=== PATIENT | female | born 1980 | race Hispanic/Latino ===

== ENCOUNTER 2023-01-06 21:09 | Emergency (ER) | payer OTHER, SELFPAY ==
--- OUTSIDE RECORDS SUMMARY | 2023-01-06 21:22 | XMS REPORT | Continuity of Care Document ---
:1980 Author Organization [facility] t Address [address] [facility] [address] [place] [id number] Care Team Providers Name Role Phone Unavailable Unavailable Unavailable Problems This patient has no known problems. Allergies, Adverse Reactions, Alerts This patient has no known allergies or adverse reactions. Medications This patient has no known medications. Procedures This patient has no known procedures. Results Test Description Test Time Test Comments Results Result [facility] e Comments SCR MAMM 2022-02-11 BILATERAL NIURKA 16:38:02 CAD DIGITAL Name: Tino : 1980 Sex: F - SCR MAMM BILATERAL NIURKA CAD DIGITALBILATERAL DIGITAL SCREENING MAMMOGRAM 3D/2D WITH CAD: 2CLINICAL: Asymptomatic. Digital breast tomosynthesis was performed in addition to routine CC and MLO views. Current mammographic images were evaluated by [employer]Stream[employer] CAD (computer-aided detection) software. Comparison is made to exams dated 08/18/2020 mammogram, 02/26/2019 mammogram, and 11/21/2017 mammogram - [facility]. The tissue of both breasts is extremely dense, which lowers the sensitivity of mammography. No suspicious mass, architectural distortion, malignant type calcification, or lymph node abnormality detected. Breast architecture is stable compared to prior exams.IMPRESSION: NEGATIVEThere is no mammographic evidence of malignancy. Resume annual screening mammography in one year. (02/12/2023) Zulay marks/penrad:02/11/2022 16:38:02 Entry: ba - 02/11/2022 19:20:51Imaging Technologist: Annie Lund FW, RT(M), [facility]-FWletter sent: BIRADS 1-2 Normal Mammogram BI-RADS: 1 Negative SCR MAMM 2020-08-30 BILATERAL NIURKA 14:21:56 CAD DIGITAL Name: Tino : 1980 Sex: F - SCR MAMM BILATERAL NIURKA CAD DIGITALBILATERAL DIGITAL SCREENING MAMMOGRAM 3D/2D WITH CAD: 08/18/2020LINICAL: Asymptomatic. Digital breast tomosynthesis was performed in addition to routine CC and MLO views. Current mammographic images were evaluated by [employer] CAD (computer-aided detection) software. Comparison is made to exams dated 02/26/2019 mammogram, 11/21/2017 mammogram, and 10/04/2016 mammogram - [facility]. The tissue of both breasts is extremely dense, which lowers the sensitivity of mammography. Bilateral scattered focal asymmetries.No suspicious mass, architectural distortion, malignant type calcification, or lymph node abnormality detected. IMPRESSION: INCOMPLETE: ADDITIONAL IMAGING EVALUATION NEEDEDBilateral scattered focal asymmetries. Initial evaluation with ultrasound and possible spot compression Tomosynthesis views is recommended at this time.Artie Wynne M.D. ss/:08/30/2020 14:21:56 Registered Public Health Nurse: Miya Rogers MM, [facility] sent: Additional Imaging Mammogram BI-RADS: 0 Incomplete: Additional Imaging Evaluation Needed SCR MAMM 2019-03-01 - SCR MAMM BILATERAL BILATERAL CAD 11:14:07 CAD DIGITALBILATERAL DIGITAL DIGITAL SCREENING MAMMOGRAM WITH CAD: 02/26/2019CLINICAL: Asymptomatic. Current mammographic images were evaluated by either a [employer] M-Vu or a [employer] ImageChecker CAD (computer aided detection system). Comparison is made to exams dated 11/21/2017 mammogram and 10/04/2016 mammogram - [facility]. The tissue of both breasts is extremely dense, which lowers the sensitivity of mammography. There is a benign calcification in the right breast. No suspicious mass, architectural distortion, malignant type calcification, or lymph node abnormality detected. Breast architecture is stable compared to prior exams.IMPRESSION: BENIGNThere is no mammographic evidence of malignancy. Resume annual screening mammography in one year. Andrés Julian/penrad:03/01/2019 11:14:07 Registered Public Health Nurse: Sharon Christianson MM, [facility]ography[facility] sent: BIRADS 1-2 Normal Mammogram BI-RADS: 2 Benign
[2023-01-06] MEDS ORDERED: ACETAMINOPHEN 500 MG TAB ONE (22:02)
[2023-01-06] MEDS ORDERED: NA CHLORIDE 0.9% 1,000 ML ONE (22:02)
--- NOTE | 2023-01-06 22:12 | RAD REPORT ---
EXAM DESCRIPTION: RAD - Chest Single View - 01/06/2023 10:02 pm CLINICAL HISTORY: COUGH Chest pain. COMPARISON: <Comparisons> FINDINGS: Portable technique limits examination quality. The lungs are grossly clear. The heart is normal in size. No displaced fractures. IMPRESSION: No acute intrathoracic process suspected.
--- NOTE | 2023-01-06 22:13 | RAD REPORT ---
EXAM DESCRIPTION: CT - CTHCSPWOC - 01/06/2023 10:07 pm CLINICAL HISTORY: Trauma, head and neck injury. CONFUSED COMPARISON: No comparisons TECHNIQUE: Axial 5 mm thick images of the head were obtained. Axial 2 mm thick images of the cervical spine were obtained with sagittal and coronal reconstruction images generated and reviewed. All CT scans are performed using dose optimization technique as appropriate and may include automated exposure control or mA/KV adjustment according to patient size. FINDINGS: CT HEAD WITHOUT CONTRAST: No acute hemorrhage, hydrocephalus or extra-axial collection is identified.No areas of brain edema or midline shift. The paranasal sinuses and mastoids are clear.The calvarium is intact. CT CERVICAL SPINE WITHOUT CONTRAST: No fracture or subluxation.No prevertebral soft tissues swelling is identified. IMPRESSION: No acute intracranial or cervical spine findings.
[2023-01-06 22:18] LABS: Absolute Lymphocytes (CBC) 1.7 K/uL (0.7-4.9); Hematocrit 35.9 % (36.0-45.0); Lymphocytes % 20.7 % (15.3-44.8); MCV 81.5 fL (80-100); MPV 7.3 fL (7.6-11.3); Platelets 300 thou/uL (152-406)
[2023-01-06 22:27] LABS: Albumin 3.5 g/dL (3.4-5.0); Bilirubin Direct 0.1 mg/dL (0-0.2); Bilirubin Indirect, Calculated 0.3 mg/dL (0.2-0.8); Bilirubin Total 0.4 mg/dL (0.2-1.0); Magnesium 2.4 mg/dL (1.6-2.4); Potassium 3.5 mEq/L (3.5-5.1); Protein, Total 7.8 g/dL (6.4-8.2); Protime INR 1.08; Troponin High Sensitivity 5.2 pg/mL (<58.9)
--- NOTE | 2023-01-06 23:11 | EDPHYS ---
Physician Documentation [facility] Name: Nohelia Rivera Age: 42 yrs Sex: Female : 1980 Arrival Date: 01/06/2023 Time: 21:09 Bed 7 Private MD: ANDRADE Physician Celso Powers HPI: 01/06 23:05 This 42 yrs old Female presents to ER via EMS with complaints of insomnia, grayson possible seizure. 23:05 The patient presents to the emergency department with anxiety. Onset: The grayson symptoms/episode began/occurred 3 day(s) ago. Past psychiatric history: Prior diagnosis: anxiety , insomnia. passed out , possible seizure. The patient presents with trouble concentrating. Onset: The symptoms/episode began/occurred today, yesterday. Possible causes: unknown. Associated signs and symptoms: The patient has no apparent associated signs or symptoms. Current symptoms: In the emergency department the patient's symptoms have improved, markedly, is more alert. Historical: - Allergies: 21:26 No Known Allergies; jj7 - PMHx: 21:26 None; jj7 - PSHx: 21:26 None; jj7 - Immunization history:: Adult Immunizations up to date, Client reports receiving the 2nd dose of the Covid vaccine. - Social history:: Smoking status: Patient denies any tobacco usage or history of. Patient/guardian denies using alcohol, street drugs. - Family history:: not pertinent. ROS: 23:05 Constitutional: Negative for fever, chills, and weight loss, Eyes: Negative for injury, grayson pain, redness, and discharge, ENT: Negative for injury, pain, and discharge, Neck: Negative for injury, pain, and swelling, Cardiovascular: Negative for chest pain, palpitations, and edema, Respiratory: Negative for shortness of breath, cough, wheezing, and pleuritic chest pain, Abdomen/GI: Negative for abdominal pain, nausea, vomiting, diarrhea, and constipation, Back: Negative for injury and pain, : Negative for injury, bleeding, discharge, and swelling, MS/Extremity: Negative for injury and deformity, Skin: Negative for injury, rash, and discoloration, Neuro: Negative for headache, weakness, numbness, tingling, and seizure, Allergy/Immunology: Negative for hives, rash, and allergies, Endocrine: Negative for neck swelling, polydipsia, polyuria, polyphagia, and marked weight changes, Hematologic/Lymphatic: Negative for swollen nodes, abnormal bleeding, and unusual bruising, 23:05 Psych: Positive for anxiety, insomnia, Exam: 23:05 Constitutional: This is a well developed, well nourished patient who is awake, alert, grayson and in no acute distress. Head/Face: Normocephalic, atraumatic. Eyes: Pupils equal round and reactive to light, extra-ocular motions intact. Lids and lashes normal. Conjunctiva and sclera are non-icteric and not injected. Cornea within normal limits. Periorbital areas with no swelling, redness, or edema. ENT: Nares patent. No nasal discharge, no septal abnormalities noted. Tympanic membranes are normal and external auditory canals are clear. Oropharynx with no redness, swelling, or masses, exudates, or evidence of obstruction, uvula midline. Mucous membranes moist. Neck: Trachea midline, no thyromegaly or masses palpated, and no cervical lymphadenopathy. Supple, full range of motion without nuchal rigidity, or vertebral point tenderness. No Meningismus. Chest/axilla: Normal chest wall appearance and motion. Nontender with no deformity. No lesions are appreciated. Cardiovascular: Regular rate and rhythm with a normal S1 and S2. No gallops, murmurs, or rubs. Normal PMI, no JVD. No pulse deficits. Respiratory: Lungs have equal breath sounds bilaterally, clear to auscultation and percussion. No rales, rhonchi or wheezes noted. No increased work of breathing, no retractions or nasal flaring. Abdomen/GI: Soft, non-tender, with normal bowel sounds. No distension or tympany. No guarding or rebound. No evidence of tenderness throughout. Back: No spinal tenderness. No costovertebral tenderness. Full range of motion. Female : Normal external genitalia. Skin: Warm, dry with normal turgor. Normal color with no rashes, no lesions, and no evidence of cellulitis. MS/ Extremity: Pulses equal, no cyanosis. Neurovascular intact. Full, normal range of motion. Neuro: Awake and alert, GCS 15, oriented to person, place, time, and situation. Cranial nerves II-XII grossly intact. Motor strength 5/5 in all extremities. Sensory grossly intact. Cerebellar exam normal. Normal gait. Psych: Awake, alert, with orientation to person, place and time. Behavior, mood, and affect are within normal limits. 23:05 ECG was reviewed by the Attending Physician. Vital Signs: 21:09 BP 157 / 99; Pulse 102; Resp 19; Temp 98.3; Pulse Ox 100% ; Weight 72.57 kg; Height 5 jj7 ft. 3 in. ; Pain 0/10; 22:47 BP 150 / 93; Pulse 71; Resp 16; Pulse Ox 100% on R/A; jb4 21:09 Body Mass Index 28.34 (72.57 kg, 160.02 cm) [facility] 21:09 Pain Scale: Adult j7 MDM: 21:11 Patient medically screened. grayson 23:07 Differential diagnosis: drug withdrawal. acute psychotic break, depression, psychosis grayson secondary to non-compliance. Differential Diagnosis altered mental status, sepsis, flu. Differential Diagnosis: CVA, electrolyte abnormality, alcohol intoxication, hypoglycemia, intracranial bleed, meningitis, pneumonia, seizure, sepsis, TIA, UTI, volume depletion. Data reviewed: vital signs, nurses notes, lab test result(s), EKG, radiologic studies, CT scan, plain films. Consideration of Admission/Observation Patient was admitted/placed on observation. Escalation of care including admission/observation considered. I considered the following discharge prescriptions or medication management in the emergency department Medications were administered in the Emergency Department. See MAR. Independent interpretation of the following test(s) in the Emergency Department EKG: See my EKG interpretation above. Test considered but Not performed: MRI: no mri brain. Historians other than the Patient: Family Member: multiple. Care significantly affected by the following chronic conditions: no psych hx. 01/06 21:13 Order name: Basic Metabolic Panel; Complete Time: 23:02 [facility] 01/06 21:13 Order name: CBC with Diff; Complete Time: 23:02 [facility] 01/06 21:13 Order name: LFT's; Complete Time: 23:02 [facility] 01/06 21:13 Order name: Magnesium; Complete Time: 23:02 [facility] 01/06 21:13 Order name: NT PRO-BNP; Complete Time: 23:02 [facility] 01/06 21:13 Order name: PT-INR; Complete Time: 23:02 [facility] 01/06 21:13 Order name: Troponin HS; Complete Time: 23:02 [facility] 01/06 21:13 Order name: Asprin; Complete Time: 23: [facility] 01/06 21:13 Order name: XRAY Chest (1 view); Complete Time: 23: [facility] 01/06 21:13 Order name: CT Head C Spine; Complete Time: 23: [facility] 01/06 21:13 Order name: EKG; Complete Time: 21:14 [facility] 01/06 21:13 Order name: Cardiac monitoring; Complete Time: 22: [facility] 01/06 21:13 Order name: EKG - Nurse/Tech; Complete Time: 21:50 [facility] 01/06 21: Order name: IV Saline Lock; Complete Time: 22: [facility] 01/06 21:13 Order name: Labs collected and sent; Complete Time: : [facility] 01/06 21: Order name: O2 Per Protocol; Complete Time: 22: [facility] 01/06 21:13 Order name: O2 Sat Monitoring; Complete Time: 22: [facility] 01/06 21:13 Order name: Seizure Precautions; Complete Time: 22: [facility] EC:05 Rate is 87 beats/min. Rhythm is regular. QRS [place] is Normal. PA interval is normal. QRS grayson interval is normal. QT interval is normal. No Q waves. T waves are Normal. No ST changes noted. Clinical impression: NSR w/ Non-specific ST/T Changes and No evidence of ischemia. Interpreted by me. Reviewed by me. 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 - Insomnia grayson Followup: grayson - With: Private Physician - When: 2 - 3 days - Reason: Recheck today's complaints, Continuance of care, Re-evaluation by your physician Discharge Instructions: - Discharge Summary Sheet grayson - Insomnia grayson - Seizure, Adult, Ennt-me-Vwmh grayson Forms: - Medication Reconciliation Form grayson - Thank You Letter grayson - Antibiotic Education grayson - Prescription Opioid Use grayson - Patient Portal Instructions grayson - Leadership Thank You Letter grayson Prescriptions: - Hydroxyzine HCl 25 mg Oral tablet - take 1 tablet ORAL route every 6 hours As needed; 28 tablet; Refills: 0, grayson Product Selection Permitted Signatures: Dispatcher [employer] Celso Fuller MD MD cha Bryson, James RN RN jb4 Mona Gonzalez RN RN jj7
--- NOTE | 2023-01-06 23:11 | ER ---
Nurse's Notes [facility] Name: Nohelia Rivera Age: 42 yrs Sex: Female : 1980 Arrival Date: 01/06/2023 Time: 21:09 Bed 7 Private MD: Diagnosis: Epileptic seizures related to external causes, not intractable, without status epilepticus;Insomnia Presentation: 01/06 21:09 Chief complaint: Patient states: PT STATES SHE HAD VISION THAT SOMEONE WAS TRYING TO jj7 HURT HER DAUGHTER FRIDAY. SO SHE CAME DOWN TO [place]. HAS NOT BEEN SLEEPING SINCE THEN AND HAS BEEN STRESSED. STATES LAST THING SHE REMEMBERS IS TAKING A SHOWER. FAMILY THINKS SHE MAY HAVE HAD A SZ. NO SZ HX EMS states: PT FOUND UNRESPONSIVE IN BATHROOM BY FAMILY. WHEN EMS ARRIVED SHE WAS STILL UNRESPONSIVE BUT BREATHING. Coronavirus screen: At this time, the client does not indicate any symptoms associated with coronavirus-19. Ebola Screen: No symptoms or risks identified at this time. Initial Sepsis Screen: Does the patient meet any 2 criteria? No. Patient's initial sepsis screen is negative. Does the patient have a suspected source of infection? No. Patient's initial sepsis screen is negative. Risk Assessment: Do you want to hurt yourself or someone else? Patient reports no desire to harm self or others. Onset of symptoms was January 01, 2023. 21:09 Method Of Arrival: EMS: [facility] jj7 21:09 Acuity: JESSEE 3 jj7 Triage Assessment: 21:26 General: Appears in no apparent distress. comfortable, Behavior is calm, cooperative, jj7 appropriate for age, anxious. Pain: Denies pain. Historical: - Allergies: 21:26 No Known Allergies; jj7 - PMHx: 21:26 None; jj7 - PSHx: 21:26 None; jj7 - Immunization history:: Adult Immunizations up to date, Client reports receiving the 2nd dose of the Covid vaccine. - Social history:: Smoking status: Patient denies any tobacco usage or history of. Patient/guardian denies using alcohol, street drugs. - Family history:: not pertinent. Screenin:[facility] ED Fall Risk Assessment (Adult) History of falling in the last 3 months, jb4 including since admission No falls in past 3 months (0 pts) Confusion or Disorientation No (0 pts) Score/Fall Risk Level 0 - 2 = Low Risk Oriented to surroundings, Maintained a safe environment. Abuse screen: Denies threats or abuse. Nutritional screening: No deficits noted. Tuberculosis screening: No symptoms or risk factors identified. Assessment: 21:30 General: Appears in no apparent distress. comfortable, Behavior is calm, cooperative, jb4 appropriate for age. Pain: Complains of pain in right calf and left calf Pain does not radiate. Pain currently is 4 out of 10 on a pain scale. Neuro: Level of Consciousness is awake, alert, obeys commands, Oriented to person, place, time, situation. Cardiovascular: Patient's skin is warm and dry. Respiratory: Airway is patent Respiratory effort is even, unlabored, Respiratory pattern is regular, symmetrical. GI: No signs and/or symptoms were reported involving the gastrointestinal system. : No signs and/or symptoms were reported regarding the genitourinary system. EENT: No signs and/or symptoms were reported regarding the EENT system. Derm: Skin is intact, Skin is pink, warm \T\ dry. Musculoskeletal: Circulation, motion, and sensation intact. Range of motion: intact in all extremities. 22:47 Reassessment: Patient appears in no apparent distress at this time. Patient and/or jb4 family updated on plan of care and expected duration. Pain level reassessed. Patient is alert, oriented x 3, equal unlabored respirations, skin warm/dry/pink. Vital Signs: 21:09 BP 157 / 99; Pulse 102; Resp 19; Temp 98.3; Pulse Ox 100% ; Weight 72.57 kg; Height 5 jj7 ft. 3 in. ; Pain 0/10; 22:47 BP 150 / 93; Pulse 71; Resp 16; Pulse Ox 100% on R/A; jb4 21:09 Body Mass Index 28.34 (72.57 kg, 160.02 cm) j7 21:09 Pain Scale: Adult jj7 ED Course: 21:11 Patient arrived in ED. grayson 21:11 Celso Powers MD is Attending Physician. grayson 21:17 Mona Gonzalez RN is Primary Nurse. j7 21:26 Triage completed. jj7 21:26 Arm band placed on right wrist. Patient placed in an exam room, on a stretcher, on jj7 oxygen, on cafeteria monitor, on pulse oximetry. 22:03 XRAY Chest (1 view) In Process Unspecified. EDMS 22:08 CT Head C Spine In Process Unspecified. EDMS 23:38 Patient has correct armband on for positive identification. Bed in low position. Call jb4 light in reach. Side rails up X 1. Client placed on continuous cardiac and pulse oximetry monitoring. NIBP monitoring applied. ekg monitor on. 23:38 No provider procedures requiring assistance completed. IV discontinued, intact, jb4 bleeding controlled, No redness/swelling at site. Pressure dressing applied. Administered Medications: 22:01 Drug: Acetaminophen PO 1000 mg PO once Route: PO; jb4 22:26 Drug: NS 0.9% IV 1000 ml IV at 1 bolus Per protocol; 1000 mL bolus Route: IV; Rate: 1 jb4 bolus; Site: left antecubital; Outcome: 23:10 Discharge ordered by . grayson 23:38 Discharged to home via wheelchair, jb4 23:38 Condition: stable 23:38 Discharge instructions given to patient, Instructed on discharge instructions, follow up and referral plans. medication usage, Demonstrated understanding of instructions, follow-up care, medications, Prescriptions given X 1, 23:41 Patient left the ED. jb4 Signatures: Dispatcher [employer] EDCelso Loza MD MD cha Bryson, James, RN RN jb4 Mona Gonzalez RN RN jj7 Corrections: (The following items were deleted from the chart) 22:27 22:26 NS 0.9% IV 1000 ml IV at 1 bolus in right antecubital jb4 jb4
[2023-01-07] VITALS: TEMP 98.3; O2SAT 100
[2023-01-07 00:11] VITALS: BP 150/93
--- NOTE | 2023-01-07 11:19 | EKG ---
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
== END 2023-01-06 23:41 | disposition home or self-care (01) ==
LOC: ER 21:09
DX: G40.509 Epileptic seizures related to external causes, not intractable, without status epilepticus (principal); G47.00 Insomnia, unspecified
CPT/HCPCS: 93005; 85025; 80048; 36415; 83735; 85610; 80076; 84484; 83880; 70450; 72125; 71045; 99285; 80179; J7030

== ENCOUNTER 2023-01-07 03:04 | Observation (INO) | payer OTHER, SELFPAY ==
--- OUTSIDE RECORDS SUMMARY | 2023-01-07 03:07 | XMS REPORT | Continuity of Care Document ---
:1980 Author Organization [facility] t Address [address] [facility] [address] [place] [id number] Care Team Providers Name Role Phone Unavailable Unavailable Unavailable Problems This patient has no known problems. Allergies, Adverse Reactions, Alerts This patient has no known allergies or adverse reactions. Medications This patient has no known medications. Procedures This patient has no known procedures. Results Test Description Test Time Test Comments Results Result [facility] e Comments SCR MAMM 2022-02-11 BILATERAL NIURKA 16:38:02 CAD DIGITAL Name: Tino : 1980 Sex: F - SCR MAMM BILATERAL NIURKA CAD DIGITALBILATERAL DIGITAL SCREENING MAMMOGRAM 3D/2D WITH CAD: 2CLINICAL: Asymptomatic. Digital breast tomosynthesis was performed in addition to routine CC and MLO views. Current mammographic images were evaluated by [employer] ImageAd[employer] CAD (computer-aided detection) software. Comparison is made to exams dated 08/18/2020 mammogram, 02/26/2019 mammogram, and 11/21/2017 mammogram - [facility]. The tissue of both breasts is extremely dense, which lowers the sensitivity of mammography. No suspicious mass, architectural distortion, malignant type calcification, or lymph node abnormality detected. Breast architecture is stable compared to prior exams.IMPRESSION: NEGATIVEThere is no mammographic evidence of malignancy. Resume annual screening mammography in one year. (02/12/2023) Zulay marks/vidhya:02/11/2022 16:38:02 Entry: ba - 02/11/2022 19:20:51Imaging Technologist: Annie Lund FW, RT(M), [facility]-FWletter sent: BIRADS 1-2 Normal Mammogram BI-RADS: 1 Negative SCR MAMM 2020-08-30 BILATERAL NIURKA 14:21:56 CAD DIGITAL Name: Tino : 1980 Sex: F - SCR MAMM BILATERAL NIURKA CAD DIGITALBILATERAL DIGITAL SCREENING MAMMOGRAM 3D/2D WITH CAD: 08/18/2020LINICAL: Asymptomatic. Digital breast tomosynthesis was performed in addition to routine CC and MLO views. Current mammographic images were evaluated by [employer] ImageAd[employer] CAD (computer-aided detection) software. Comparison is made to exams dated 02/26/2019 mammogram, 11/21/2017 mammogram, and 10/04/2016 mammogram - [facility]. The tissue of both breasts is extremely dense, which lowers the sensitivity of mammography. Bilateral scattered focal asymmetries.No suspicious mass, architectural distortion, malignant type calcification, or lymph node abnormality detected. IMPRESSION: INCOMPLETE: ADDITIONAL IMAGING EVALUATION NEEDEDBilateral scattered focal asymmetries. Initial evaluation with ultrasound and possible spot compression Tomosynthesis views is recommended at this time.Artie Wynne M.D. ss/:08/30/2020 14:21:56 Store Planner: Miya Rogers MM, [facility] sent: Additional Imaging Mammogram BI-RADS: 0 Incomplete: Additional Imaging Evaluation Needed SCR MAMM 2019-03-01 - SCR MAMM BILATERAL BILATERAL CAD 11:14:07 CAD DIGITALBILATERAL DIGITAL DIGITAL SCREENING MAMMOGRAM WITH CAD: 02/26/2019CLINICAL: Asymptomatic. Current mammographic images were evaluated by either a [employer] M-Vu or a [employer] ImageChecker CAD (computer aided detection system). Comparison is made to exams dated 11/21/2017 mammogram and 10/04/2016 mammogram - [facility]. The tissue of both breasts is extremely dense, which lowers the sensitivity of mammography. There is a benign calcification in the right breast. No suspicious mass, architectural distortion, malignant type calcification, or lymph node abnormality detected. Breast architecture is stable compared to prior exams.IMPRESSION: BENIGNThere is no mammographic evidence of malignancy. Resume annual screening mammography in one year. Andrés [place] M.D. et/penrad:03/01/2019 11:14:07 Store Planner: Sharon Christianson MM, [facility] sent: BIRADS 1-2 Normal Mammogram BI-RADS: 2 Benign
--- NOTE | 2023-01-07 03:17 | EDPHYS ---
Physician Documentation [facility] Name: Nohelia Rivera Age: 42 yrs Sex: Female : 1980 Arrival Date: 01/07/2023 Time: 03:04 Bed 3 Private MD: Celso Disla HPI: 01/07 03:09 This 42 yrs old Female presents to ER via EMS with complaints of seizure, grayson recurrent. 03:09 The patient presents after having a single isolated seizure, that lasted an unknown grayson period of time. Character of seizure(s): Loss of consciousness: the patient experienced loss of consciousness, Motor activity: generalized, Incontinence: none, Apnea: the patient did not experience apnea, Circulation: the patient did not experience evidence of pulse disturbance, Eye movements: are unknown. Seizure onset: just prior to arrival. Context: the seizure(s) was witnessed, by family, occurred at home. Seizure Hx: Original onset: recent, Cause: unknown, Last seizure: The patient's last seizure this evening. Associated injury: The patient did not suffer any apparent associated injury. 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 - Family history:: not pertinent. - Social history:: Smoking status: Patient denies any tobacco usage or history of. ROS: 03:09 Constitutional: Negative for fever, chills, and weight loss, Eyes: Negative for injury, grayson pain, redness, and discharge, ENT: Negative for injury, pain, and discharge, Neck: Negative for injury, pain, and swelling, Cardiovascular: Negative for chest pain, palpitations, and edema, Respiratory: Negative for shortness of breath, cough, wheezing, and pleuritic chest pain, Abdomen/GI: Negative for abdominal pain, nausea, vomiting, diarrhea, and constipation, Back: Negative for injury and pain, : Negative for injury, bleeding, discharge, and swelling, MS/Extremity: Negative for injury and deformity, Skin: Negative for injury, rash, and discoloration, Psych: Negative for depression, anxiety, suicide ideation, homicidal ideation, and hallucinations, Allergy/Immunology: Negative for hives, rash, and allergies, Endocrine: Negative for neck swelling, polydipsia, polyuria, polyphagia, and marked weight changes, Hematologic/Lymphatic: Negative for swollen nodes, abnormal bleeding, and unusual bruising, 03:09 Neuro: Positive for seizure activity, Exam: 03:09 Constitutional: This is a well developed, well nourished patient who is awake, alert, grayson and in no acute distress. Head/Face: Normocephalic, atraumatic. Eyes: Pupils equal round and reactive to light, extra-ocular motions intact. Lids and lashes normal. Conjunctiva and sclera are non-icteric and not injected. Cornea within normal limits. Periorbital areas with no swelling, redness, or edema. ENT: Nares patent. No nasal discharge, no septal abnormalities noted. Tympanic membranes are normal and external auditory canals are clear. Oropharynx with no redness, swelling, or masses, exudates, or evidence of obstruction, uvula midline. Mucous membranes moist. Neck: Trachea midline, no thyromegaly or masses palpated, and no cervical lymphadenopathy. Supple, full range of motion without nuchal rigidity, or vertebral point tenderness. No Meningismus. Chest/axilla: Normal chest wall appearance and motion. Nontender with no deformity. No lesions are appreciated. Cardiovascular: Regular rate and rhythm with a normal S1 and S2. No gallops, murmurs, or rubs. Normal PMI, no JVD. No pulse deficits. Respiratory: Lungs have equal breath sounds bilaterally, clear to auscultation and percussion. No rales, rhonchi or wheezes noted. No increased work of breathing, no retractions or nasal flaring. Abdomen/GI: Soft, non-tender, with normal bowel sounds. No distension or tympany. No guarding or rebound. No evidence of tenderness throughout. Back: No spinal tenderness. No costovertebral tenderness. Full range of motion. Female : Normal external genitalia. Skin: Warm, dry with normal turgor. Normal color with no rashes, no lesions, and no evidence of cellulitis. MS/ Extremity: Pulses equal, no cyanosis. Neurovascular intact. Full, normal range of motion. Psych: Awake, alert, with orientation to person, place and time. Behavior, mood, and affect are within normal limits. 03:09 Neuro: Orientation: is normal, appropriate for stated age, Mentation: slow to respond, Memory: immediate memory is impaired, remote memory is intact. recent memory the patient can't recall what they had for dinner last night, Cranial nerves: grossly normal, is grossly normal based on the patient's age, no acute changes, Cerebellar function: is grossly normal, 03:49 ECG was reviewed by the Attending Physician. grayson Vital Signs: 03:06 BP 145 / 82; Pulse 94; Resp 22; Temp 99.1(O); Pulse Ox 100% on R/A; Weight 69 kg (M); jb4 03:51 BP 106 / 69; Pulse 78; Resp 16; Pulse Ox 98% on R/A; jb4 08:16 BP 121 / 82; Pulse 80; Resp 18; Pulse Ox 100% ; ll1 NIH Stroke Scale Scores: 03:09 NIHSS Score: 0 grayson MDM: 03:05 Patient medically screened. grayson 03:13 Differential diagnosis: cerebral vascular accident, drug overdose, cardiac arrhythmia, grayson seizure, TIA. Data reviewed: vital signs, nurses notes, EMS record, lab test result(s), EKG, radiologic studies, CT scan, plain films. Consideration of Admission/Observation Escalation of care including admission/observation considered. I considered the following discharge prescriptions or medication management in the emergency department Medications were administered in the Emergency Department. See MAR. Independent interpretation of the following test(s) in the Emergency Department EKG: See my EKG interpretation above. Test considered but Not performed: MRI: no mri brain. Historians other than the Patient: EMS: ems, well informed. Care significantly affected by the following chronic conditions: insomnia. 01/07 03:08 Order name: Acetaminophen; Complete Time: 04:42 grayson 01/07 03:08 Order name: Basic Metabolic Panel; Complete Time: 04:42 grayson 01/07 03:08 Order name: CBC with Diff 01/07 03:08 Order name: ETOH Level; Complete Time: 04:42 grayson 01/07 03:08 Order name: Hepatic Function; Complete Time: 04:42 01/07 03:08 Order name: PT-INR 01/07 03:08 Order name: Test, Urine 01/07 03:08 Order name: Ptt, Activated 01/07 03:08 Order name: Salicylate; Complete Time: 04:42 [facility] 01/07 03:08 Order name: Urinalysis w/ reflexes [facility] 01/07 03:08 Order name: Urine Drug Screen [facility] 01/07 03:08 Order name: ABG; Complete Time: 04:42 [facility] 01/07 03:08 Order name: EKG; Complete Time: 03:09 [facility] 01/07 04:57 Order name: CONS Physician Consult EDGA 01/07 03:08 Order name: EKG - Nurse/Tech; Complete Time: 03:50 [facility] 01/07 03:08 Order name: IV Saline Lock; Complete Time: 03:50 [facility] 01/07 03:08 Order name: Labs collected and sent; Complete Time: 03:50 [facility] 01/07 03:08 Order name: Seizure Precautions; Complete Time: 03:50 [facility] EC:49 Rate is 70 beats/min. Rhythm is regular. QRS [place] is Normal. NM interval is normal. QRS grayson interval is normal. QT interval is normal. No Q waves. T waves are Normal. No ST changes noted. Clinical impression: Normal ECG and No evidence of ischemia. Interpreted by me. Reviewed by me. Administered Medications: 03:38 Drug: Ativan IVP 2 mg IVP once Route: IVP; [facility] 08:15 Follow up: Response: No adverse reaction ll1 03:38 Drug: Keppra IV 1000 mg IV at per protocol once Route: IV; Rate: per protocol; Site: [address]; 08:15 Follow up: Response: No adverse reaction; IV Status: Completed infusion; IV Intake: ll1 100ml 03:38 Drug: NS 0.9% IV 1000 ml IV at 1 bolus Per protocol; 1000 mL bolus Route: IV; Rate: 1 jb4 bolus; Site: left antecubital; 08:15 Follow up: Response: No adverse reaction; IV Status: Completed infusion; IV Intake: ll1 1000ml 04:29 Drug: Banana Bag - (Multivitamin IV 1 amp, NS 0.9% IV 1000 ml, Thiamine IV 100 mg, jb4 foLIC Acid IVPB 1 mg) IV at 125 ml/hr once Route: IV; Rate: 125 ml/hr; Site: left antecubital; 08:15 Follow up: Response: No adverse reaction; IV Status: Completed infusion; IV Intake: ll1 1000ml 08:15 Drug: Potassium PO Effervescent Tablet 25 mEq PO once; dissolve in 4 ounces of water or ll1 juice Route: PO; 13:44 Follow up: Response: No adverse reaction ll1 Disposition Summary: 01/07/23 03:16 Hospitalization Ordered Notes: Hospitalization Status: Observation grayson Provider: Jf Pop cha Condition: Stable grayson Problem: new grayson Symptoms: have improved grayson Bed/Room Type: Standard grayson Location: Telemetry/MedSurg (observation)(01/07/23 15:06) bd Room Assignment: 216(01/07/23 15:06) bd Diagnosis - Epileptic seizures related to external causes, not intractable, without status grayson epilepticus - Insomnia, unspecified grayson - Hypokalemia grayson Forms: - Medication Reconciliation Form grayson - SBAR form grayson - Leadership Thank You Letter grayson NIH Stroke Scale - NIH Stroke Score Date: 01/07/2023 Time: 03:09 Total Score = 0 10. Dysarthria (speech clarity - read or repeat words) - 0(Normal) 11. Extinction and Inattention (visual/tactile/auditory/spatial/personal) - 0(No abnormality) 1a. Level of Consciousness (LOC) - 0(Alert) 1b. Level of Consciousness (LOC) (Month \T\ Age) - 0(Both) 1c. LOC Commands (Open \T\ Closes Eyes/International Controller) - 0(Both) 2. Best Gaze (Lateral Gaze Paresis) - 0(Normal) 3. Visual Field Loss - 0(No visual loss) 4. Facial Palsy - 0(Normal) 5a. Left Arm: Motor (10-second hold) - 0(No drift) 5b. Right Arm: Motor (10-second hold) - 0(No drift) 6a. Left Leg: Motor (5-second hold - always test supine) - 0(No drift) 6b. Right Leg: Motor (5-second hold - always test supine) - 0(No drift) 7. Limb Ataxia (finger/nose \T\ heel/saldana - test with eyes open) - 0(Absent) 8. Sensory Loss (pinprick arms/legs/face) - 0(Normal) 9. Best Language: Aphasia (description/naming/reading) - 0(No aphasia) Initials: graysno Signatures: Dispatcher [employer] EDSylvia Contreras Corey, MD MD cha Garcia, Cindy, RN RN cg Qasim Blank RN RN jb4 Abril Araya RN RN ll1 Linnea Leonard, BOARDING HOUSE MANAGER BOARDING HOUSE MANAGER [id number] Corrections: (The following items were deleted from the chart) 03:50 03:08 Suicide Screening (Ary) ordered. grayson jb4 05:03 03:16 Telemetry/MedSurg (observation) [facility] cg 05:03 03:16 [facility] cg 15:06 05:03 [facility] ER HOLD cg bd 15:06 05:03 ERHOLD- cg bd
--- NOTE | 2023-01-07 03:17 | ER ---
Nurse's Notes [facility] Name: Nohelia Rivera Age: 42 yrs Sex: Female : 1980 Arrival Date: 01/07/2023 Time: 03:04 Bed 3 Private MD: Diagnosis: Epileptic seizures related to external causes, not intractable, without status epilepticus;Insomnia, unspecified;Hypokalemia Presentation: 01/07 03:06 Chief complaint: EMS states: Pt had another seizure after being discharged. Was jb4 postictal this time upon EMS arrival. BGL was 165. Coronavirus screen: At this time, the client does not indicate any symptoms associated with coronavirus-19. Ebola Screen: No symptoms or risks identified at this time. Initial Sepsis Screen: Does the patient meet any 2 criteria? No. Patient's initial sepsis screen is negative. Does the patient have a suspected source of infection? No. Patient's initial sepsis screen is negative. Risk Assessment: Do you want to hurt yourself or someone else? Patient reports no desire to harm self or others. Onset of symptoms was January 07, 2023. Transition of care: patient was not received from another setting of care. 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 - Family history:: not pertinent. - Social history:: Smoking status: Patient denies any tobacco usage or history of. Screenin:[address] [facility] ED Fall Risk Assessment (Adult) History of falling in the last 3 months, jb4 including since admission No falls in past 3 months (0 pts) Confusion or Disorientation No (0 pts) Score/Fall Risk Level 0 - 2 = Low Risk Oriented to surroundings, Maintained a safe environment. Abuse screen: Denies threats or abuse. Nutritional screening: No deficits noted. Tuberculosis screening: No symptoms or risk factors identified. Assessment: 03:08 General: Appears in no apparent distress. comfortable, Behavior is calm, cooperative. jb4 Pain: Denies pain. Neuro: Level of Consciousness is awake, alert, obeys commands, Oriented to person. Cardiovascular: Patient's skin is warm and dry. Respiratory: Airway is patent Respiratory effort is even, unlabored, Respiratory pattern is regular, symmetrical. GI: No signs and/or symptoms were reported involving the gastrointestinal system. : No signs and/or symptoms were reported regarding the genitourinary system. EENT: No signs and/or symptoms were reported regarding the EENT system. Derm: Skin is intact, Skin is pink, warm \T\ dry. Musculoskeletal: Circulation, motion, and sensation intact. Range of motion: intact in all extremities. 03:50 Reassessment: Pt is resting in bed with eyes closed, respirations are even and jb4 unlabored with no s/s of pain or distress noted. No s/s of seizure noted. 07:00 Reassessment: No changes from previously documented assessment. Report received from 1 night supervisor RN. Seizures pads applied to rails. Vital Signs: 03:06 BP 145 / 82; Pulse 94; Resp 22; Temp 99.1(O); Pulse Ox 100% on R/A; Weight 69 kg (M); jb4 03:51 BP 106 / 69; Pulse 78; Resp 16; Pulse Ox 98% on R/A; jb4 08:16 BP 121 / 82; Pulse 80; Resp 18; Pulse Ox 100% ; ll1 NIH Stroke Scale Scores: 03:09 NIHSS Score: 0 [facility] ED Course: 03:05 Patient arrived in ED. grayson 03:05 Celso Powers MD is Attending Physician. [facility] 03:06 Qasim Blank, RN is Primary Nurse. jb4 03:08 Triage completed. jb4 03:08 Arm band placed on right wrist. jb4 03:16 Jf Pop MD is Hospitalizing Provider. [facility] 13:23 Abril Araya, GRAYSON is Primary Nurse. 1 15:31 No provider procedures requiring assistance completed. Patient admitted, IV remains in ll1 place. 15:35 Patient has correct armband on for positive identification. Bed in low position. Call ll1 light in reach. Seizure precautions initiated. Provided Education on: n/a. Administered Medications: 03:38 Drug: Ativan IVP 2 mg IVP once Route: IVP; Site: left antecubital; jb4 08:15 Follow up: Response: No adverse reaction ll1 03:38 Drug: Keppra IV 1000 mg IV at per protocol once Route: IV; Rate: per protocol; Site: jb4 left antecubital; 08:15 Follow up: Response: No adverse reaction; IV Status: Completed infusion; IV Intake: ll1 100ml 03:38 Drug: NS 0.9% IV 1000 ml IV at 1 bolus Per protocol; 1000 mL bolus Route: IV; Rate: 1 jb4 bolus; Site: left antecubital; 08:15 Follow up: Response: No adverse reaction; IV Status: Completed infusion; IV Intake: ll1 1000ml 04:29 Drug: Banana Bag - (Multivitamin IV 1 amp, NS 0.9% IV 1000 ml, Thiamine IV 100 mg, jb4 foLIC Acid IVPB 1 mg) IV at 125 ml/hr once Route: IV; Rate: 125 ml/hr; Site: left antecubital; 08:15 Follow up: Response: No adverse reaction; IV Status: Completed infusion; IV Intake: ll1 1000ml 08:15 Drug: Potassium PO Effervescent Tablet 25 mEq PO once; dissolve in 4 ounces of water or ll1 juice Route: PO; 13:44 Follow up: Response: No adverse reaction ll1 Medication: 15:36 VIS not applicable for this client. ll1 Intake: 08:15 IV: 100ml; Total: 100ml. ll1 08:15 IV: 1000ml; Total: 1100ml. ll1 08:15 IV: 1000ml; Total: 2100ml. ll1 Outcome: 03:16 Decision to Hospitalize by Provider. grayson 15:32 Admitted to Med/surg accompanied by valerie, via stretcher, room 216, with chart, Report ll1 called to GRAYSON Velásquez 15:32 Condition: stable 15:32 Instructed on the need for admit, 15:48 Patient left the ED. ld1 NIH Stroke Scale - NIH Stroke Score Date: 01/07/2023 Time: 03:09 Total Score = 0 10. Dysarthria (speech clarity - read or repeat words) - 0(Normal) 11. Extinction and Inattention (visual/tactile/auditory/spatial/personal) - 0(No abnormality) 1a. Level of Consciousness (LOC) - 0(Alert) 1b. Level of Consciousness (LOC) (Month \T\ Age) - 0(Both) 1c. LOC Commands (Open \T\ Closes Eyes/Electrical Manufacturing Technician) - 0(Both) 2. Best Gaze (Lateral Gaze Paresis) - 0(Normal) 3. Visual Field Loss - 0(No visual loss) 4. Facial Palsy - 0(Normal) 5a. Left Arm: Motor (10-second hold) - 0(No drift) 5b. Right Arm: Motor (10-second hold) - 0(No drift) 6a. Left Leg: Motor (5-second hold - always test supine) - 0(No drift) 6b. Right Leg: Motor (5-second hold - always test supine) - 0(No drift) 7. Limb Ataxia (finger/nose \T\ heel/saldana - test with eyes open) - 0(Absent) 8. Sensory Loss (pinprick arms/legs/face) - 0(Normal) 9. Best Language: Aphasia (description/naming/reading) - 0(No aphasia) Initials: grayson Signatures: Celso Powers MD MD cha Bryson, James RN RN jb4 Abril Araya RN RN ll1 Maki Cerda, GRAYSON RN ld1
[2023-01-07 03:27] LABS: Arterial Blood Carboxyhemoglob 0.8 % (0-1.5); Blood O2 Saturation 97.2 % (92-98.5)
[2023-01-07] MEDS ORDERED: LORazepam 2 MG/ML VIAL ONE (03:28)
[2023-01-07] MEDS ORDERED: LEVETIRACETAM 500 MG/5 ML VIAL IV ONE ×2 (03:28→14:04)
[2023-01-07] MEDS ORDERED: NA CHLORIDE 0.9% 100 ML ONE ×2 (03:29→14:04)
[2023-01-07] MEDS ORDERED: NA CHLORIDE 0.9% 1,000 ML ONE ×2 (03:29→04:34)
--- NOTE | 2023-01-07 03:57 | P.HP ---
Certification for Inpatient Patient admitted to: Observation With expected LOS: <2 Midnights Patient will require the following post-hospital care: None Practitioner: I am a practitioner with admitting privileges, knowledge of patient current condition, hospital course, and medical plan of care. Services: Services provided to patient in accordance with Admission requirements found in Title 42 Section 412.3 of the Code of Federal Regulations Patient History Date of Service: 01/07/23 Reason for admission: Seizure disorder History of Present Illness: 42-year-old female Past medical history anxiety, depression, insomnia, presents to the ER with with seizure. Reported symptoms started yesterday after not sleeping for 3 days. Patient was seen in the emergency room and was discharged home. Patient returned to the emergency room and was treated with seizure-like activity. Patient was treated with Ativan and Keppra in the emergency room. She reports seizure yesterday evening. No reported injuries. No reported fever, recent infection. No reported nausea vomiting, aspiration. No reported injury from seizure. Plan to admit for Epileptic seizures related to external causes, not intractable, without status epilepticu, Insomnia, unspecified NIH stroke scale 0, laboratory evaluation vital signs 145 / 82; Pulse 94; Resp 22; Temp 99.1(O); Pulse Ox 100% on R/A; UDS negative UA pending CBC unremarkable ABG PO2 117, HCO3 18, PCO2 31, chest x-ray pending, CT of the head and cervical spines pending pending. EKG Rate is 87 beats/min. Rhythm is regular. QRS [place] is Normal. RI interval is normal. QRS grayson interval is normal. QT interval is normal. No Q waves. T waves are Normal. No ST changes noted. Clinical impression: NSR w/ Non-specific ST/T Changes and No evidence of schemia. Allergies No Known Allergies Allergy (Unverified 01/07/23 04:35) - Past Medical/Surgical History Diabetic: No -: Seizure disorder -: Anxiety -: Depression - Social History Smoking Status: Never smoker Alcohol use: No CD- Drugs: No Caffeine use: No Place of Residence: Home Review of Systems 10-point ROS is otherwise unremarkable Physical Examination - Physical Exam General: Other (, Lethargic) HEENT: Atraumatic, Normocephalic Neck: Supple, 2+ carotid pulse no bruit Respiratory: Clear to auscultation bilaterally, Normal air movement Cardiovascular: Normal pulses, Regular rate/rhythm Capillary refill: <2 Seconds Gastrointestinal: Normal bowel sounds, Soft and benign Musculoskeletal: No clubbing, No swelling Integumentary: No rashes, No breakdown Neurological: Other (Postictal, lethargic), Abnormal speech Assessment and Plan - Plan Assessment plan Epileptic seizures related to external causes not intractable, without status epilepticu Insomnia Anxiety Depression DVT prophylaxis Assessment plan Epileptic seizures related to external causes not intractable, without status epilepticu Neuro consult, seizure precautions, EEG in the a.m. UDS pending CT of the head cervical spine pending As needed Ativan, Robertoppra, KG Rate is 87 beats/min. Rhythm is regular. QRS [place] is Normal. RI interval is normal. QRS grayson interval is normal. QT interval is normal. No Q waves. T waves are Normal. No ST changes noted. Clinical impression: NSR w/ Non-specific ST/T Changes and No evidence of schemia. UDS negative, UA negative, CBC unremarkable Insomnia InsomniA Anxiety Depression Safety measures Diet n.p.o. Full code DVT Lovenox Discharge Plan: Home Plan to discharge in: 24 Hours - Advance Directives Does patient have a Living Will: No Does patient have a Durable POA for Healthcare: No - Code Status/Comfort Care Code Status: Full Code Physician Review: Patient Assessed, Agree with Above Assessment and Plan Critical Care: No Time Spent Managing Pts Care (In Minutes): 50
[2023-01-07 04:18] LABS: Albumin 3.2 g/dL (3.4-5.0); Bilirubin Direct 0.1 mg/dL (0-0.2); Bilirubin Indirect, Calculated 0.2 mg/dL (0.2-0.8); Bilirubin Total 0.3 mg/dL (0.2-1.0); Potassium 3.4 mEq/L (3.5-5.1); Protein, Total 6.9 g/dL (6.4-8.2)
[2023-01-07] MEDS ORDERED: THIAMINE 200 MG/2 ML INJ ONE (04:33)
[2023-01-07] MEDS ORDERED: MULTIVITAMINS 10 ML VIAL (INJ) IV ONE (04:33)
[2023-01-07] MEDS ORDERED: FOLIC ACID 5 MG/ML VIAL ONE (04:34)
[2023-01-07] MEDS ORDERED: LORazepam 2 MG/ML VIAL IV PRN (05:24)
[2023-01-07 06:47] VITALS: BMI 22.4
--- NOTE | 2023-01-07 08:05 | P.PN ---
Subjective Date of Service: 01/07/23 Patient denies any new complaints. Clinical symptoms are stable. Patient does not really remember much of what happened around the seizure. She just remembers waking up in the hospital. She never had seizures before. She has some numbness in her feet but otherwise no other complaints. She did not bite her tongue and did not have any incontinence. Plan is to do an MRI of her brain and do EEG. We will get neurology consultation today as well. Hopefully will be able to start her on antiepileptics and discharge her home with outpatient follow-up. We discussed with her with a finish mender regarding when she is able to do and when she is not able to do going forward since she just had the seizure. Review of Systems 10-point ROS is otherwise unremarkable Physical Examination - Vital Signs Temperature: 98 F (reviewed) - Physical Exam General: Alert, In no apparent distress, Oriented x3 HEENT: Atraumatic, PERRLA, EOMI Neck: Supple, JVD not distended Respiratory: Clear to auscultation bilaterally, Normal air movement Cardiovascular: Regular rate/rhythm, Normal S1 S2 Gastrointestinal: Normal bowel sounds, Soft and benign, Non-distended, No tenderness Musculoskeletal: No clubbing, No swelling, No tenderness Integumentary: No rashes Neurological: Sensation intact, Cranial nerves 3-12 intact - Studies Laboratory Data (last 24 hrs) 01/07/23 03:30 Sodium 138 Potassium 3.4 L BUN 14 Creatinine 0.94 Glucose 206 H Total Bilirubin 0.3 AST 34 ALT 58 H Alkaline Phosphatase 66 Medications List Reviewed: Yes Assessment & Plan - Problems (Diagnosis) (1) New onset seizure Current Visit: Yes Status: Acute - Plan Plan: 1. Continue with further work-up for seizures with EEG and MRI of the brain. 2. Neurology consultation 3. Start antiepileptics 4. Discussed with patient regarding not doing any high risk activities since she was just diagnosed with seizures. No swimming alone, no driving, no climbing a ladder, etc. Will discuss with her in more details going forward. Anticipate discharge home later today once we get the work-up completed. Continue on observation status. Discharge Plan: Home Plan to discharge in: 24 Hours - Advance Directives Does patient have a Living Will: No Does patient have a Durable POA for Healthcare: No - Code Status/Comfort Care Code Status: Full Code Physician Review: Patient Assessed, Agree with Above Assessment and Plan Critical Care: No Time Spent Managing PTS Care (In Minutes): 30
[2023-01-07] MEDS ORDERED: POTASSIUM 25 MEQ EFFERV TAB ONE (08:19)
[2023-01-07 09:39] LABS: Absolute Lymphocytes (CBC) 2.4 K/uL (0.7-4.9); Hematocrit 30.4 % (36.0-45.0); Lymphocytes % 26.3 % (15.3-44.8); MCV 82.5 fL (80-100); Platelets 287 thou/uL (152-406); RBC Red Blood Cell Count 3.69 M/uL (3.86-4.86)
[2023-01-07 09:45] LABS: Protime INR 1.1
--- NOTE | 2023-01-07 11:18 | EKG ---
Test Date: 2023-01-07 Test Time: 03:46:09 [employer] Operator: ARABELLA MEASUREMENT RESULTS: Intervals: Rate: 70 CO: 126 QRSD: 92 QT: 424 QTc: 457 [place]: P: 36 CO: 126 QRS: 80 T: 72 INTERPRETIVE STATEMENTS: Normal sinus rhythm Normal ECG Compared to ECG 01/06/2023 21:44:15 No significant changes Electronically Signed On 01-07-23 11:17:24 CDT by Perez Neff
[2023-01-07] MEDS: levETIRAcetam 500 MG in NA CHLORIDE 0.9% 100 ML IV SCH (14:00)
[2023-01-07 14:13] LABS: Specific Gravity 1.021 (1.005-1.030)
[2023-01-07 14:15] LABS: Barbiturates NEGATIVE (NEGATIVE); Benzodiazepines NEGATIVE (NEGATIVE); Cocaine NEGATIVE (NEGATIVE); METHAMPHETAM NEGATIVE (NEGATIVE); Methadone ND (NEGATIVE); Opiates NEGATIVE (NEGATIVE); Phencyclidine NEGATIVE (NEGATIVE); THC Cannibis NEGATIVE (NEGATIVE)
[2023-01-07 14:17] LABS: Specific Gravity 1.021 (1.005-1.030); Urine Bacteria None Seen /HPF (<20); Urine Bilirubin NEGATIVE (Negative); Urine Blood Trace (Negative); Urine Clarity Turbid (Clear); Urine Color Light-Yellow (Yellow); Urine Glucose NEGATIVE (Negative); Urine Mucus 2+ /HPF (None Seen); Urine Protein NEGATIVE (Negative); Urine RBC <5 /HPF (None Seen); Urine Urobilinogen Normal (Normal)
[2023-01-07 15:55] VITALS: O2SAT 100
--- NOTE | 2023-01-07 20:21 | RAD REPORT ---
EXAM DESCRIPTION: MRI - Brain W/Wo Cont - 01/07/2023 3:14 pm CLINICAL HISTORY: seizure COMPARISON: Head and neck CT 01/06/2023 TECHNIQUE: Multiplanar multisequence MRI of the brain performed before and after intravenous adminis tration of 15 mL MultiHance. FINDINGS: Motion artifact somewhat limits evaluation, despite attempts at repeat imaging. No evidence of acute infarct or other diffusion signal abnormality. No evidence of acute intracranial hemorrhage or abnormal extra-axial fluid collections. Ventricular caliber within normal for age. Midline structures are unremarkable. Subtle subcortical and deep white matter T2/FLAIR hyperintensities, nonspecific, but may suggest jad y chronic small vessel ischemic changes. No mass effect or midline shift. No abnormal enhancement. Major vascular flow voids are preserved. Mastoid air cells and paranasal sinuses are clear. IMPRESSION: No acute intracranial process. No evidence of abnormal enhancement or mass effect. Subtle subcortical and deep white matter foci of T2/FLAIR hyperintensity, nonspecific, but may sugges t early chronic small vessel ischemic changes. Other considerations may include vasculitis, vascular migraine, sequelae of prior trauma or infection. Demyelinating disease considered less likely given t he distribution.
[2023-01-08] MEDS: levETIRAcetam 500 MG in NA CHLORIDE 0.9% 100 ML IV SCH (02:00)
[2023-01-08 09:00] VITALS: TEMP 97.3
[2023-01-08 12:13] VITALS: BP 131/70
--- NOTE | 2023-01-08 21:27 | P.DS ---
Admission Date: 01/07/23 Discharge Date: 01/08/23 Disposition: ROUTINE DISCHARGE Discharge Condition: GOOD Reason for Admission: Seizure disorder Hospital Course: Nohelia Rivera is a pleasant 42-year-old female with a past medical history significant for anxiety, depression, insomnia, who was admitted to the [facility] on 01/07/2023 for seizures. Nohelia was admitted due to witnessed seizure activity at home. Nohelia reports seizure activity on 01/06/2023 when she was first seen in the ED and monitored for few hours. She was then discharged that day and had another seizure at home. She came back to the ED 01/07/2023 and was started on Keppra. Dr. Espinal was consulted and recommended continuing Keppra at home, MRI is negative for significant lesions, tumors, fluid and Dr. Espinal felt comfortable sending Nohelia home to continue outpatient treatment with him. Plan is to follow-up with Dr. Espinal as outpatient for EEG and evaluation of Keppra. Nohelia has tolerated keppra IV and is ambulating independently in her room. She is actively conversing with her family at bedside. On 01/09/2020, Nohelia was seen on morning rounds and deemed medically stable for discharge. Nohelia was discharged with instructions to schedule follow-up appointments with PCP and Dr. Espinal. Nohelia was provided prescriptions for Deltasone and Keppra. The patient and family members were given the opportunity to ask questions and reported no further questions. Furthermore, all questions were answered to the best of my ability. A copy of this discharge summary will be sent to the above providers to facilitate continuity of care. Today, I personally spent 55 minutes with 50, of which greater than 50% of the time was spent in patient education, counseling, and coordination of care as described above. Physical Exam General: Alert, In no apparent distress, Oriented x3 HEENT: Atraumatic, PERRLA, EOMI Neck: Supple, JVD not distended Respiratory: Clear to auscultation bilaterally, Normal air movement Cardiovascular: Regular rate/rhythm, Normal S1 S2 Gastrointestinal: Normal bowel sounds, Soft and benign, Non-distended, No tenderness Musculoskeletal: No clubbing, No swelling, No tenderness Integumentary: No rashes Neurological: Sensation intact, Cranial nerves 3-12 intact Vital Signs/Physical Exam: Temp Pulse Resp BP Pulse Ox 97.3 F 65 16 131/70 98 01/08/23 12:00 01/08/23 12:00 01/08/23 12:00 01/08/23 12:00 01/08/23 12:00 Laboratory Data at Discharge: WBC 9.10 thou/uL (4.3-10.9) 01/07/23 09:25 Hgb 9.9 g/dL (12.0-15.0) L D 01/07/23 09:25 Hct 30.4 % (36.0-45.0) L 01/07/23 09:25 Plt Count 287 thou/uL (152-406) 01/07/23 09:25 PT 12.1 SECONDS (9.5-12.5) 01/07/23 09:25 INR 1.10 01/07/23 09:25 APTT 25.4 SECONDS (24.3-36.9) 01/07/23 09:25 Sodium 138 mEq/L (136-145) 01/07/23 03:30 Potassium 3.4 mEq/L (3.5-5.1) L 01/07/23 03:30 BUN 14 mg/dL (7-18) 01/07/23 03:30 Creatinine 0.94 mg/dL (0.55-1.02) 01/07/23 03:30 Glucose 206 mg/dL (74-106) H 01/07/23 03:30 Total Bilirubin 0.3 mg/dL (0.2-1.0) 01/07/23 03:30 AST 34 U/L (15-37) 01/07/23 03:30 ALT 58 U/L (13-56) H 01/07/23 03:30 Alkaline Phosphatase 66 U/L (45-117) 01/07/23 03:30 Home Medications: levETIRAcetam [Keppra Tab] 500 mg PO Q12H #60 tab 01/08/23 predniSONE [Deltasone] 20 mg PO DAILY #5 tab 01/08/23 New Medications: levETIRAcetam [Keppra Tab] 500 mg PO Q12H #60 tab predniSONE [Deltasone] 20 mg PO DAILY #5 tab Physician Discharge Instructions: -DC IV and DC home -Follow-up with PCP in 1 to 2 weeks -Follow-up with Neurology in 1 to 2 weeks -Please call Dr. Pop at [phone] if any questions regarding hospital stay -Please call nursing station at [phone] if any nursing or medication questions -Return to the emergency room if symptoms worsen Diet: Regular Activity: Fall precautions Followup: Atilio Espinal MD [ASSOCIATE-ACTIVE - CAN ADMIT] - 1-2 Weeks (Call for appointment.) NONE,NONE [Primary Care Provider] - 1-2 Weeks (Call for appointment.) Time spent managing pt's care (in minutes): 55
== END 2023-01-08 14:15 | disposition home or self-care (01) ==
LOC: ER 03:04 → ERHOLD 04:54 → 2ND 15:41
PROVIDERS: ADMIT Hospitalist; ATTEND Hospitalist
DX: G40.509 Epileptic seizures related to external causes, not intractable, without status epilepticus (principal); F41.9 Anxiety disorder, unspecified; F32.A Depression, unspecified; G47.00 Insomnia, unspecified; E87.6 Hypokalemia
CPT/HCPCS: 36415; 70553; 80048; 80076; 80143; 80179; 80307; 81001; 81025; 82077; 82805; 85025; 85610; 85730; 93005; 96365; 96366; 96375; 99285; A9577; G0378; J1953; J3411; J7030

== ENCOUNTER 2023-12-24 10:08 | Emergency (ER) | payer OTHER ==
[2023-12-24] MEDS ORDERED: NA CHLORIDE 0.9% 1,000 ML ONE (10:38)
[2023-12-24 11:06] LABS: Absolute Eosinophils 0.1 K/uL (0-0.5); Absolute Lymphocytes (CBC) 1.7 K/uL (0.7-4.9); Absolute Monocytes 0.5 K/uL (0.1-1.3); Absolute Neutrophil 3.4 K/uL (1.8-8.0); Basophils % 0.5 % (0-1.3); Eosinophils % 1.2 % (0-4.4); Hematocrit 42.4 % (36.0-45.0); Hemoglobin 14.1 g/dL (12.0-15.0); Lymphocytes % 29.8 % (15.3-44.8); MCH 29.7 pg (27.0-35.0); MCHC 33.2 g/dL (32.0-36.0); MCV 89.4 fL (80-100); MPV 7.6 fL (7.6-11.3); Monocytes % 8.7 % (3.3-12.3); Neutrophils % 59.8 % (41.7-73.7); Platelets 298 thou/uL (152-406); RBC Red Blood Cell Count 4.74 M/uL (3.86-4.86)
[2023-12-24 11:17] LABS: Anion Gap 9.4 mEq/L (5.0-15.0); BETA HYDROXYBUTYRATE 3.37 mmol/L (0.02-0.27); Magnesium 1.7 mg/dL (1.6-2.4); Potassium 4.4 mEq/L (3.5-5.1)
--- NOTE | 2023-12-24 12:27 | ER ---
Nurse's Notes [facility] Name: Nohelia Rivera Age: 43 yrs Sex: Female : 1980 Arrival Date: 12/24/2023 Time: 10:08 Bed 15 Private MD: Diagnosis: Diabetes mellitus due to underlying condition with hyperglycemia Presentation: 12/23 10:29 Chief complaint: Patient states: blood was drawn by PCP yesterday, received a call tm6 today that BGL was in the 500s. Took BGL at home and it was in the 300s. Complaining of leg cramps recently. Coronavirus screen: Vaccine status: Patient reports receiving the 2nd dose of the covid vaccine. Ebola Screen: Patient negative for fever greater than or equal to 101.5 degrees Fahrenheit, and additional compatible Ebola Virus Disease symptoms Patient denies exposure to infectious person. Patient denies travel to an Ebola-affected area in the 21 days before illness onset. No symptoms or risks identified at this time. Initial Sepsis Screen: Does the patient meet any 2 criteria? No. Patient's initial sepsis screen is negative. Does the patient have a suspected source of infection? No. Patient's initial sepsis screen is negative. Risk Assessment: Do you want to hurt yourself or someone else? Patient reports no desire to harm self or others. Onset of symptoms was December 24, 2023. 10:29 Method Of Arrival: Ambulatory tm6 10:29 Acuity: JESSEE 3 tm6 Triage Assessment: 10:31 General: Appears in no apparent distress. Behavior is calm, cooperative. Pain: Denies tm6 pain. EENT: No signs and/or symptoms were reported regarding the EENT system. Neuro: Level of Consciousness is awake, alert, obeys commands, Oriented to person, place, time, situation. Cardiovascular: Patient's skin is warm and dry. Respiratory: Airway is patent Respiratory effort is even, unlabored, Respiratory pattern is regular, symmetrical. GI: No signs and/or symptoms were reported involving the gastrointestinal system. Abdomen is flat, non-distended. : No signs and/or symptoms were reported regarding the genitourinary system. Derm: No signs and/or symptoms reported regarding the dermatologic system. Musculoskeletal: No signs and/or symptoms reported regarding the musculoskeletal system. 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 - Infectious Disease History:: Denies. - Social history:: Smoking status: Patient denies any tobacco usage or history of. Patient/guardian denies using alcohol. - Family history:: not pertinent. - Hospitalizations: : No recent hospitalization is reported. Screenin:20 [facility] ED Fall Risk Assessment (Adult) History of falling in the last 3 months, rs5 including since admission No falls in past 3 months (0 pts) Confusion or Disorientation No (0 pts) Intoxicated or Sedated No (0 pts) Impaired Gait No (0 pts) Mobility Assist Device Used No (0 pt) Altered Elimination No (0 pt) Score/Fall Risk Level 0 - 2 = Low Risk Oriented to surroundings, Maintained a safe environment. Abuse screen: Denies threats or abuse. Nutritional screening: No deficits noted. Tuberculosis screening: No symptoms or risk factors identified. Assessment: 10:20 General: Appears in no apparent distress. comfortable, Behavior is calm, cooperative. rs5 Pain: Denies pain. Neuro: Level of Consciousness is awake, alert, obeys commands, Oriented to person, place, time, situation. Cardiovascular: Patient's skin is warm and dry. Respiratory: Airway is patent Respiratory effort is even, unlabored, Respiratory pattern is regular, symmetrical. GI: Abdomen is round non-distended, Abd is soft and non tender X 4 quads. : No signs and/or symptoms were reported regarding the genitourinary system. EENT: No signs and/or symptoms were reported regarding the EENT system. Derm: Skin is intact, Skin is pink, warm \T\ dry. Musculoskeletal: Range of motion: intact in all extremities. 11:33 Reassessment: Patient and/or family updated on plan of care and expected duration. Pain rs5 level reassessed. Patient is alert, oriented x 3, equal unlabored respirations, skin warm/dry/pink. 12:22 Reassessment: Patient and/or family updated on plan of care and expected duration. Pain rs5 level reassessed. Patient is alert, oriented x 3, equal unlabored respirations, skin warm/dry/pink. Vital Signs: 10:29 BP 123 / 69; Pulse 80; Resp 19; Temp 98.6(O); Pulse Ox 100% on R/A; MAP 85 mmHg; Weight tm6 62.14 kg; Height 5 ft. 3 in. ; Pain 0/10; 11:33 BP 125 / 72; Pulse 77; Resp 17; Pulse Ox 99% on R/A; rs5 12:33 BP 111 / 57; Pulse 72; Resp 16; Temp 98.1; Pulse Ox 100% ; me1 10:29 Body Mass Index 24.27 (62.14 kg, 160.02 cm) tm6 10:29 Pain Scale: Adult tm6 ED Course: 10:12 Patient arrived in ED. ra3 10:16 Kirt Johns MD is Attending Physician. rn 10:20 Patient has correct armband on for positive identification. Placed in gown. Bed in low rs5 position. Call light in reach. Side rails up X2. 10:20 No provider procedures requiring assistance completed. rs5 10:31 Triage completed. tm6 10:31 Arm band placed on right wrist. tm6 10:34 Steffen Mandujano, GRAYSON is Primary Nurse. rs5 10:37 Inserted saline lock: 20 gauge in right Blood collected. Flushed with 10 mL NS. rs5 12:39 Provided Education on: POC. Verbalized understanding. . me1 12:39 IV discontinued, intact, bleeding controlled, No redness/swelling at site. Pressure me1 dressing applied. Administered Medications: 10:40 Drug: NS 0.9% IV 1000 ml IV at 1000 ml once Route: IV; Rate: 1000 ml; Site: right rs5 antecubital; 11:34 Follow up: Response: No adverse reaction; IV Status: Completed infusion; IV Intake: rs5 1000ml Medication: 12:39 VIS not applicable for this client. me1 Intake: 11:34 IV: 1000ml; Total: 1000ml. rs5 Outcome: 12:26 Discharge ordered by . rn 12:39 Discharged to home ambulatory, with family, me1 12:39 Condition: stable 12:39 Discharge instructions given to patient, family, Instructed on discharge instructions, follow up and referral plans. Demonstrated understanding of instructions, follow-up care, 12:39 Patient left the ED. me1 Signatures: Kirt Johns MD MD rn Steffen Mandujano, RN RN rs5 Katina Cain RN RN me1 Terence Pascual RN RN 6 Elaine Payton 3
--- NOTE | 2023-12-24 12:27 | EDPHYS ---
Physician Documentation [facility] Name: Nohelia Rivera Age: 43 yrs Sex: Female : 1980 Arrival Date: 12/24/2023 Time: 10:08 Bed 15 Private MD: ED Physician Kirt Johns HPI: 12/23 10:54 This 43 yrs old Female presents to ER via Ambulatory with complaints of rn Abnormal Lab Results. 10:54 The patient or guardian reports hyperglycemia, that was potentially precipitated by no rn particular event. Onset: The symptoms/episode began/occurred at an unknown time. Current symptoms: In the emergency department the patient's symptoms are unchanged from the initial presentation. The patient has experienced similar episodes in the past. The patient has been recently seen by a physician:. Patient and family report called by PCP and told to come to the ER for high blood sugar. Reports blood sugar was 500. Just started metformin this past February, has never been on insulin. Reports increased thirst and urination but otherwise feels okay. No recent illness. No chest pain. No focal neurologic deficit.. 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 - Infectious Disease History:: Denies. - Social history:: Smoking status: Patient denies any tobacco usage or history of. Patient/guardian denies using alcohol. - Family history:: not pertinent. - Hospitalizations: : No recent hospitalization is reported. ROS: 10:54 Constitutional: Negative for fever, chills, and weight loss, Cardiovascular: Negative rn for chest pain, palpitations, and edema, Respiratory: Negative for shortness of breath, cough, wheezing, and pleuritic chest pain, Abdomen/GI: Negative for abdominal pain, nausea, vomiting, diarrhea, and constipation, Back: Negative for injury and pain, : Positive for increased urination MS/Extremity: Negative for injury and deformity, Skin: Negative for injury, rash, and discoloration, Neuro: Negative for headache, weakness, numbness, tingling, and seizure, Exam: 10:54 Constitutional: This is a well developed, well nourished patient who is awake, alert, rn and in no acute distress. Head/Face: Normocephalic, atraumatic. ENT: Dry mucous membranes Cardiovascular: Regular rate and rhythm. No pulse deficits. Respiratory: No increased work of breathing, no retractions or nasal flaring. Abdomen/GI: Soft, non-tender MS/ Extremity: Pulses equal, no cyanosis. Neurovascular intact. Full, normal range of motion. Equal circumference. Neuro: Awake and alert, GCS 15 Vital Signs: 10:29 BP 123 / 69; Pulse 80; Resp 19; Temp 98.6(O); Pulse Ox 100% on R/A; MAP 85 mmHg; Weight tm6 62.14 kg; Height 5 ft. 3 in. ; Pain 0/10; 11:33 BP 125 / 72; Pulse 77; Resp 17; Pulse Ox 99% on R/A; rs5 12:33 BP 111 / 57; Pulse 72; Resp 16; Temp 98.1; Pulse Ox 100% ; me1 10:29 Body Mass Index 24.27 (62.14 kg, 160.02 cm) tm6 10:29 Pain Scale: Adult tm6 MDM: 10:16 Patient medically screened. rn 12:24 Differential diagnosis: hyperglycemia. Differential diagnosis: DKA. Data reviewed: rn vital signs, nurses notes. Data reviewed: lab test result(s), and as a result, I will discharge patient. Counseling: I had a detailed discussion with the patient and/or guardian regarding the historical points, exam findings, and any diagnostic results supporting the discharge/admit diagnosis, lab results, the need for outpatient follow up, to return to the emergency department if symptoms worsen or persist or if there are any questions or concerns that arise at home. Special discussion: I discussed with the patient/guardian in detail that at this point there is no indication for admission to the hospital. It is understood, however, that if the symptoms persist or worsen the patient needs to return immediately for re-evaluation. ED course: Glucose 256 here. No anion gap. No acidosis. Patient feels well. Results printed out and handed to patient, will take to PCP for further recommendations of medication management of diabetes. 12/23 10:30 Order name: CBC with Diff; Complete Time: 11:19 rn 12/23 10:30 Order name: Basic Metabolic Panel; Complete Time: 11:19 rn 12/23 10:30 Order name: Magnesium; Complete Time: 11:19 rn 12/23 10:30 Order name: BETA HYDROXYBUTYRATE; Complete Time: 11: rn 12/23 10:32 Order name: Glucose, Ancillary Testing; Complete Time: 11:19 EDMS 12/23 10:30 Order name: IV Start; Complete Time: 11:26 rn 12/23 10:30 Order name: Glucose Level; Complete Time: 11:03 rn Administered Medications: 10:40 Drug: NS 0.9% IV 1000 ml IV at 1000 ml once Route: IV; Rate: 1000 ml; Site: right rs5 antecubital; 11:34 Follow up: Response: No adverse reaction; IV Status: Completed infusion; IV Intake: rs5 1000ml Disposition Summary: 12/24/23 12:26 Discharge Ordered Notes: Location: Home rn Problem: new rn Symptoms: have improved rn Condition: Stable rn Diagnosis - Diabetes mellitus due to underlying condition with hyperglycemia rn Followup: rn - With: Private Physician - When: As needed - Reason: Recheck today's complaints, Re-evaluation by your physician Discharge Instructions: - Discharge Summary Sheet rn - Hyperglycemia rn - Daily Diabetes Mellitus Record rn - Blood Glucose Monitoring, Adult rn Forms: - Medication Reconciliation Form 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
[2023-12-25 00:28] VITALS: BP 111/57; TEMP 98.1; O2SAT 100
== END 2023-12-24 12:39 | disposition home or self-care (01) ==
LOC: ER 10:08
DX: E11.65 Type 2 diabetes mellitus with hyperglycemia (principal)
CPT/HCPCS: 85025; 80048; 36415; 83735; 82947; 82010; 96360; 99284; J7030

== ENCOUNTER 2024-02-20 15:33 | Emergency (ER) | payer OTHER ==
[2024-02-20] MEDS ORDERED: NA CHLORIDE 0.9% 1,000 ML ONE (16:06)
[2024-02-20] MEDS ORDERED: LIDOCAINE 1% MPF 5 ML VIAL ONE (16:16)
[2024-02-20] MEDS ORDERED: FENTANYL CITR 100 MCG/2 ML ONE (16:16)
[2024-02-20 16:19] LABS: Absolute Eosinophils 0.1 K/uL (0-0.5); Absolute Lymphocytes (CBC) 2.2 K/uL (0.7-4.9); Absolute Monocytes 0.8 K/uL (0.1-1.3); Absolute Neutrophil 4.4 K/uL (1.8-8.0); Basophils % 0.6 % (0-1.3); Eosinophils % 0.9 % (0-4.4); Hematocrit 37.7 % (36.0-45.0); Hemoglobin 12.2 g/dL (12.0-15.0); Lymphocytes % 28.9 % (15.3-44.8); MCH 29.2 pg (27.0-35.0); MCHC 32.3 g/dL (32.0-36.0); MCV 90.6 fL (80-100); MPV 7.1 fL (7.6-11.3); Monocytes % 10.7 % (3.3-12.3); Neutrophils % 58.9 % (41.7-73.7); Platelets 348 thou/uL (152-406); RBC Red Blood Cell Count 4.17 M/uL (3.86-4.86); Red Cell Distribution Width 13.8 % (12.1-15.2)
[2024-02-20 16:38] LABS: Albumin 3.7 g/dL (3.4-5.0); Albumin/Globulin Ratio 1.2 (1.1-1.8); Anion Gap 7.9 mEq/L (5.0-15.0); Bilirubin Total 0.3 mg/dL (0.2-1.0); Potassium 3.9 mEq/L (3.5-5.1); Protein, Total 6.7 g/dL (6.4-8.2)
[2024-02-20] MEDS ORDERED: DOXYCYCLINE 100 MG CAP PO ONE (16:38)
--- NOTE | 2024-02-20 16:44 | EDPHYS ---
Physician Documentation [facility] Name: Nohelia Rivera Age: 43 yrs Sex: Female : 1980 Arrival Date: 02/20/2024 Time: 15:33 Bed 7 Private MD: ED Physician Joaquin Berg HPI: 02/19 16:49 This 43 yrs old Female presents to ER via Ambulatory with complaints of rt Abscess. 16:49 Patient with history of poorly controlled diabetes presents to the ED with an abscess rt to the back that has been present for few days. States it is growing, painful. Denies other acute complaints at this time, symptoms are mild in severity, no other aggravating or alleviating factors. Historical: - Allergies: 15:51 No Known Allergies; tm6 - PMHx: 15:51 diabetes mellitus; Seizure; tm6 - PSHx: 15:51 section; tm6 - Immunization history:: Flu vaccine is not up to date. - Infectious Disease History:: Denies. - Social history:: Smoking status: Patient denies any tobacco usage or history of. Patient/guardian denies using alcohol. - Family history:: not pertinent. ROS: 16:49 Constitutional: Negative for fever, chills, and weight loss, Cardiovascular: Negative rt for chest pain, palpitations, and edema, Respiratory: Negative for shortness of breath, cough, wheezing, and pleuritic chest pain, Abdomen/GI: Negative for abdominal pain, nausea, vomiting, diarrhea, and constipation, Neuro: Negative for headache, weakness, numbness, tingling, and seizure, 16:49 Skin: Positive for abscess, Exam: 16:49 Constitutional: This is a well developed, well nourished patient who is awake, alert, rt and in no acute distress. Chest/axilla: Normal chest wall appearance and motion. Nontender with no deformity. No lesions are appreciated. Cardiovascular: Regular rate and rhythm with a normal S1 and S2. No gallops, murmurs, or rubs. Normal PMI, no JVD. No pulse deficits. Respiratory: Lungs have equal breath sounds bilaterally, clear to auscultation and percussion. No rales, rhonchi or wheezes noted. No increased work of breathing, no retractions or nasal flaring. Abdomen/GI: Soft, non-tender, with normal bowel sounds. No distension or tympany. No guarding or rebound. No evidence of tenderness throughout. 16:49 Skin: Roughly 4 cm in diameter cutaneous abscess noted to the mid back minimal surrounding cellulitis. Vital Signs: 15:50 BP 113 / 84; Pulse 78; Resp 19; Temp 97.2(O); Pulse Ox 100% on R/A; MAP 94 mmHg; Weight tm6 62.14 kg; Height 5 ft. 3 in. ; Pain 8/10; 16:34 BP 122 / 71; Pulse 71; Resp 16; Pulse Ox 97% on R/A; ko1 17:00 BP 126 / 74; Pulse 74; Resp 16; Pulse Ox 99% ; ko1 15:50 Body Mass Index 24.27 (62.14 kg, 160.02 cm) tm6 15:50 Pain Scale: Adult tm6 Procedures: 16:49 I \T\ D: Incision and drainage was performed for an abscess of the back Prepped with rt alcohol, Anesthetized with 2 ml's 1% Lidocaine. Incised with #11 blade. Drained moderate amount purulent fluid. Dressing: sterile 4x4 gauze, the patient tolerated the procedure well. MDM: 15:46 Medical Screening Exam initiated rt 16:49 Differential diagnosis: abscess, cellulitis, Hyperglycemia. Data reviewed: vital signs, rt nurses notes. Test considered but Not performed: CT: Early contained cutaneous abscess, CT scan is not indicated. Care significantly affected by the following chronic conditions: Diabetes. Counseling: I had a detailed discussion with the patient and/or guardian regarding the historical points, exam findings, and any diagnostic results supporting the discharge/admit diagnosis, lab results, the need for outpatient follow up, to return to the emergency department if symptoms worsen or persist or if there are any questions or concerns that arise at home. Response to treatment: the patient's symptoms have markedly improved after treatment. 02/19 15:52 Order name: CBC with Diff; Complete Time: 16:33 rt 02/19 15:52 Order name: CMP; Complete Time: 16:38 rt 02/19 15:52 Order name: I\T\D Setup; Complete Time: 16:04 rt Administered Medications: 16:13 Drug: NS 0.9% IV 1000 ml IV at 1 bolus Per protocol; to be given as a bolus over 60 ko1 minutes Route: IV; Rate: 1 bolus; Site: right antecubital; 17:01 Follow up: Response: No adverse reaction; IV Status: Completed infusion; IV Intake: ko1 1000ml 16:20 Drug: fentaNYL (PF) IVP 75 mcg IVP once Route: IVP; Site: right antecubital; ko1 16:35 Follow up: Response: No adverse reaction; Pain is decreased ko1 16:20 Drug: Lidocaine Infiltration (1 %) 5 ml 5 ml Infiltration once; to bedside {Note: given ko1 by dr berg.} Volume: 5 ml; Route: Infiltration; 16:40 Follow up: Response: No adverse reaction ko1 16:38 Drug: Doxycycline PO 100 mg PO once Route: PO; ko1 17:05 Follow up: Response: No adverse reaction; Medication administered at discharge. ko1 16:55 Drug: Ondansetron IVP 4 mg IVP once; over 2 minutes Route: IVP; Site: right antecubital;ko1 17:06 Follow up: Response: No adverse reaction; Medication administered at discharge.; Nausea ko1 is decreased Disposition Summary: 02/20/24 16:43 Discharge Ordered Notes: Location: Home rt Problem: new rt Symptoms: have improved rt Condition: Stable rt Diagnosis - Cutaneous abscess of back rt - Hyperglycemia rt Followup: rt - With: Private Physician - When: 2 - 3 days - Reason: Discharge Instructions: - Discharge Summary Sheet rt - Skin Abscess rt Forms: - Medication Reconciliation Form rt - Antibiotic Education rt - Prescription Opioid Use rt - Patient Portal Instructions rt - Leadership Thank You Letter rt Prescriptions: - Doxycycline Hyclate 100 mg Oral Tablet - take 1 tablet ORAL route every 12 hours; 20 tablet; Refills: 0, Product rt Selection Permitted Signatures: Dispatcher [employer] Vivian Kumari, RN RN ko1 Joaquin Berg MD MD rt Terence Pascual RN RN tm6
--- NOTE | 2024-02-20 16:44 | ER ---
Nurse's Notes [facility] Name: Nohelia Rivera Age: 43 yrs Sex: Female : 1980 Arrival Date: 02/20/2024 Time: 15:33 Bed 7 Private MD: Diagnosis: Cutaneous abscess of back;Hyperglycemia Presentation: 02/19 15:50 Chief complaint: Patient states: abscess on right upper back x1 week. Pain is 8/10. tm6 Coronavirus screen: Client denies travel out of the [place] in the last 14 days. Ebola Screen: Patient negative for fever greater than or equal to 101.5 degrees Fahrenheit, and additional compatible Ebola Virus Disease symptoms Patient denies exposure to infectious person. Patient denies travel to an Ebola-affected area in the 21 days before illness onset. No symptoms or risks identified at this time. Initial Sepsis Screen: Does the patient meet any 2 criteria? No. Patient's initial sepsis screen is negative. Does the patient have a suspected source of infection? No. Patient's initial sepsis screen is negative. Risk Assessment: Do you want to hurt yourself or someone else? Patient reports no desire to harm self or others. Onset of symptoms was February 13, 2024. 15:50 Method Of Arrival: Ambulatory tm6 15:50 Acuity: JESSEE 4 tm6 Triage Assessment: 15:51 General: Appears in no apparent distress. Behavior is calm, cooperative. Pain: tm6 Complains of pain in right scapular area Pain currently is 8 out of 10 on a pain scale. Pain began 1 week ago. EENT: No signs and/or symptoms were reported regarding the EENT system. Neuro: Level of Consciousness is awake, alert, obeys commands, Oriented to person, place, time, situation. Cardiovascular: Patient's skin is warm and dry. Respiratory: Airway is patent Respiratory effort is even, unlabored, Respiratory pattern is regular, symmetrical. GI: No signs and/or symptoms were reported involving the gastrointestinal system. Abdomen is flat, non-distended. : No signs and/or symptoms were reported regarding the genitourinary system. Derm: Abscess located on right scapular area is golf ball sized, has no drainage, is raised. Musculoskeletal: Reports pain in right scapular area Pain is 8 out of 10 on a pain scale. Historical: - Allergies: 15:51 No Known Allergies; tm6 - PMHx: 15:51 diabetes mellitus; Seizure; tm6 - PSHx: 15:51 section; tm6 - Immunization history:: Flu vaccine is not up to date. - Infectious Disease History:: Denies. - Social history:: Smoking status: Patient denies any tobacco usage or history of. Patient/guardian denies using alcohol. - Family history:: not pertinent. Screenin:34 [facility] ED Fall Risk Assessment (Adult) History of falling in the last 3 months, ko1 including since admission No falls in past 3 months (0 pts) Confusion or Disorientation No (0 pts) Intoxicated or Sedated No (0 pts) Impaired Gait No (0 pts) Mobility Assist Device Used No (0 pt) Altered Elimination No (0 pt) Score/Fall Risk Level 0 - 2 = Low Risk Oriented to surroundings, Maintained a safe environment, Educated pt \T\ family on fall prevention, incl call for assistance when getting out of bed, Assessed \T\ reinforced patient's understanding of fall precautions, Provided non-skid footwear, Hourly rounding (assess needs \T\ fall precautionary measures) done. Abuse screen: Denies threats or abuse. Denies injuries from another. Nutritional screening: No deficits noted. Tuberculosis screening: No symptoms or risk factors identified. Assessment: 16:00 General: Appears in no apparent distress. Behavior is calm, cooperative, appropriate ko1 for age. Pain: Complains of pain in back. Neuro: No deficits noted. Cardiovascular: No deficits noted. Respiratory: No deficits noted. GI: No deficits noted. : No deficits noted. EENT: No deficits noted. Derm: Abscess located on back is golf ball sized, is red, is raised. Musculoskeletal: No deficits noted. Vital Signs: 15:50 BP 113 / 84; Pulse 78; Resp 19; Temp 97.2(O); Pulse Ox 100% on R/A; MAP 94 mmHg; Weight tm6 62.14 kg; Height 5 ft. 3 in. ; Pain 8/10; 16:34 BP 122 / 71; Pulse 71; Resp 16; Pulse Ox 97% on R/A; ko1 17:00 BP 126 / 74; Pulse 74; Resp 16; Pulse Ox 99% ; ko1 15:50 Body Mass Index 24.27 (62.14 kg, 160.02 cm) tm6 15:50 Pain Scale: Adult tm6 ED Course: 15:38 Patient arrived in ED. mr 15:42 Joaquin Berg MD is Attending Physician. rt 15:51 Triage completed. tm6 15:51 Arm band placed on right wrist. tm6 15:59 Vivian Aponte, RN is Primary Nurse. ko1 16:13 CMP Sent. ko1 16:13 CBC with Diff Sent. ko1 16:14 Inserted saline lock: 22 gauge in right antecubital area, using aseptic technique. ko1 Blood collected. Flushed with 10 mL NS. 16:14 Initial lab(s) drawn, by me, sent to lab. ko1 16:34 Patient has correct armband on for positive identification. Placed in gown. Bed in low ko1 position. Call light in reach. Side rails up X2. Provided Education on: labs, meds, procedure. Pulse ox on. NIBP on. Door closed. Noise minimized. 16:34 Assist provider with I \T\ D: of an abscess on Set up I\T\D tray. Performed by Joaquin Berg MD Dressing with 4X4s, tape Patient tolerated well. 17:00 IV discontinued, intact, bleeding controlled, No redness/swelling at site. Pressure ko1 dressing applied. Administered Medications: 16:13 Drug: NS 0.9% IV 1000 ml IV at 1 bolus Per protocol; to be given as a bolus over 60 ko1 minutes Route: IV; Rate: 1 bolus; Site: right antecubital; 17:01 Follow up: Response: No adverse reaction; IV Status: Completed infusion; IV Intake: ko1 1000ml 16:20 Drug: fentaNYL (PF) IVP 75 mcg IVP once Route: IVP; Site: right antecubital; ko1 16:35 Follow up: Response: No adverse reaction; Pain is decreased ko1 16:20 Drug: Lidocaine Infiltration (1 %) 5 ml 5 ml Infiltration once; to bedside {Note: given ko1 by dr berg.} Volume: 5 ml; Route: Infiltration; 16:40 Follow up: Response: No adverse reaction ko1 16:38 Drug: Doxycycline PO 100 mg PO once Route: PO; ko1 17:05 Follow up: Response: No adverse reaction; Medication administered at discharge. ko1 16:55 Drug: Ondansetron IVP 4 mg IVP once; over 2 minutes Route: IVP; Site: right antecubital;ko1 17:06 Follow up: Response: No adverse reaction; Medication administered at discharge.; Nausea ko1 is decreased Medication: 16:34 VIS not applicable for this client. ko1 Intake: 17:01 IV: 1000ml; Total: 1000ml. ko1 Outcome: 16:43 Discharge ordered by . rt 17:06 Discharged to home ambulatory, with family, ko1 17:06 Condition: stable 17:06 Discharge instructions given to patient, family, Instructed on discharge instructions, follow up and referral plans. medication usage, wound care, Demonstrated understanding of instructions, follow-up care, medications, wound care, Prescriptions given X 1, 17:06 Patient left the ED. ko1 Signatures: Priyanka Rendon, Ramon Reg mr Vivian Aponte, RN RN ko1 Joaquin Berg MD MD rt Terence Pascual RN RN tm6
[2024-02-20] MEDS ORDERED: ONDANSETRON 4 MG/2 ML VIAL ONE (16:54)
[2024-02-20 19:12] VITALS: TEMP 97.2
[2024-02-20 19:24] VITALS: BP 126/74; O2SAT 99
== END 2024-02-20 17:06 | disposition home or self-care (01) ==
LOC: ER 15:33
PROC: 0H96XZZ Drainage of Back Skin, External Approach (ICD-10-PCS; principal; 2024-02-20)
DX: L02.212 Cutaneous abscess of back [any part, except buttock and flank] (principal); E11.65 Type 2 diabetes mellitus with hyperglycemia
CPT/HCPCS: 96361; 85025; 36415; 80053; 96375; 96374; 99285; 10060; J2003; J3010; J2405; J7030